=== PATIENT | female | born 1985 | race Caucasian/White ===

== ENCOUNTER 2020-07-19 20:54 | Emergency (ER) | payer BC ==
[~2020-07-19] VITALS: Ht 152.4 cm; Wt 68.9 kg
[2020-07-19 21:12] VITALS: BP 155/79
--- NOTE | 2020-07-19 21:40 | NUR ---
PT AMBULATED TO BED 7
--- NOTE | 2020-07-19 21:42 | NUR ---
RECEIVE THE PT IN BED 7 C/O LEFT SIDE ABDOMINAL PAIN RADIATING TO THE MIDDLE ABDOMEN AND VAGINAL BLEEDING. PT STATED THAT SHE HAS CRAMPING PAIN 6/10. PT STATED THAT SHE JUST CAME FROM [facility] AND VERBALIZED THAT SHE HAS LABS AND UTS DONE BUT DIDN'T KNOW THE RESULT BECAUSE SHE LEFT THE ER AND CAME HERE INSTEAD. PT STATED THAT SHE'S BEEN BLEEDING OFF AND ON AND NOW HAVING VAGINAL BLEEDING,BROWNISH IN COLOR AND NO CLOTS. NO OTHER MEDICAL HISTORY AND NKA.
[2020-07-19 22:40] LABS: BASOPHILS # (AUTO) 0.1 K/uL (0.00-0.22); BASOPHILS % (AUTO) 0.5 % (0.0-2.0); EOSINOPHILS # (AUTO) 0.2 K/uL (0-0.4); EOSINOPHILS % (AUTO) 1.2 % (0.0-4.0); HEMATOCRIT 43.1 % (36-48); HEMOGLOBIN 14.6 g/dL (12.0-16.0); LYMPHOCYTES # (AUTO) 2.8 K/uL (2.5-16.5); LYMPHOCYTES % (AUTO) 21.4 % (20.5-51.1); MEAN CORPUSCULAR HEMOGLOBIN 29 pg (27-31); MEAN CORPUSCULAR HGB CONC 34 g/dL (33-37); MEAN CORPUSCULAR VOLUME 85.6 fL (80-94); MONOCYTES # (AUTO) 0.7 K/uL (0.8-1.0); MONOCYTES % (AUTO) 5.6 % (1.7-9.3); NEUTROPHILS # (AUTO) 9.3 K/uL (1.8-7.7); NEUTROPHILS % (AUTO) 71.3 % (42.2-75.2); PLATELET COUNT (AUTO) 309 K/uL (140-450); RED BLOOD CELL COUNT(AUTO) 5.04 MIL/uL (4.20-5.40); RED CELL DISTRIBUTION WIDTH 13.1 % (11.6-13.7); WHITE BLOOD COUNT (AUTO) 13.1 K/uL (4.8-10.8)
--- NOTE | 2020-07-19 22:45 | NUR ---
UTS at the bedside
[2020-07-19 23:08] LABS: ALBUMIN 4.2 g/dL (3.4-5.0); ANION GAP 13.3 (8-16); CARBON DIOXIDE 26.6 mmol/L (21-32); POTASSIUM 3.9 mmol/L (3.5-5.1); TOTAL BILIRUBIN 0.3 mg/dL (0.0-1.0)
[2020-07-20] MEDS ORDERED: LIDO15SO PO (00:11)
--- NOTE | 2020-07-20 00:55 | NUR ---
Patient discharged with v/s stable. Written and verbal after care instructions given and explained. Patient verbalized understanding. Ambulatory with steady gait. All questions addressed prior to discharge. Advised to follow up with PMD.
[2020-07-20 01:12] VITALS: BP 120/64
== END 2020-07-20 00:47 | disposition home or self-care (01) ==
LOC: MED 20:54
DX: O20.0 Threatened abortion (principal); F41.9 Anxiety disorder, unspecified; Z79.899 Other long term (current) drug therapy
CPT/HCPCS: 36415; 76801; 80053; 81002; 81025; 84702; 85025; 86900; 86901; 99284

== ENCOUNTER 2020-07-23 19:22 | Emergency (ER) | payer BC ==
[~2020-07-23] VITALS: Ht 152.4 cm; Wt 68.9 kg
[~2020-07-23 19:22] MED LIST: LIDO15SO PO
[2020-07-23 19:25] VITALS: BP 149/96
[2020-07-23] MEDS ORDERED: ACETAMINOPHEN 325 MG TAB PO ONE (19:40)
[2020-07-23 20:52] VITALS: BP 149/96
== END 2020-07-23 20:52 | disposition home or self-care (01) ==
LOC: MED 19:22
DX: O03.9 Complete or unspecified spontaneous abortion without complication (principal); Z79.899 Other long term (current) drug therapy
CPT/HCPCS: 36415; 84702; 99283